=== PATIENT | female | born 1995 ===

== ENCOUNTER 2025-03-13 10:30 | Outpatient (RCR) | payer OTHER, SELFPAY ==
--- NOTE | 2025-02-28 12:28 | PC.NURSE ---
Edd is a 29 year old female who was encouraged to reach out to PHP by her therapist. Per the referral it was noted that she needs to complete PHP prior to continuing with her. Edd prefers to go by Jose and it will be documented throughout the integrative assessment as Jose. Jose disclosed that she had only seen her once and that she is unaware of any situations of why she would be told that. Jose disclosed that she spoke to the therapist because she was feeling terrible and she informed her of some suicidal ideations that was occurring for her after she experiencing a rupture in a relationship with an individual she was going on dates together who she thought was going to turn into something more but was informed by that individual that it doesn?t feel right and this individual discontinued speaking with them. Jose stated that there was no closure. Jose voiced that she was fine but after a month it had come into reality what had occurred. Jose mentioned that is when she sought out this therapist. Jose disclosed that the suicidal thoughts were around that she didn?t want to live anymore, in which she talked about hanging herself. Jose stated that she said she wasn?t going to hang herself now but disclosed that she can?t guarantee that she will never do it in her life. Jose disclosed that she has noticed improvement in her overall mood, in which she stated things began to get better after she met Court (early February of 2025) up until current time. Jose feels as though what helped with her overall mood was giving up and trying to be more spiritual.
--- NOTE | 2025-02-28 12:39 | PC.NURSE ---
pt denies home medications
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
--- NOTE | 2025-03-03 06:44 | HO.PHP ---
PHP staff member faxed over a referral for OP therapy and Med Management for [facility] to [facility].
--- NOTE | 2025-03-10 15:40 | HO.PHP ---
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 Original Note: Edd disclosed that she is feeling uncomfortable and triggered within the group setting due to the size of the groups today. [facility] staff member encouraged her to implement her coping skills and that she is here to work on improving those triggers. Edd did not want to return to the group to try. [facility] staff member assessed for safety and suggested that she can go home and return Thursday. Edd was in agreement. There was no SI, plan or intent reported.
--- NOTE | 2025-03-13 23:31 | P.PNPSP_ITS ---
Subjective Subjective Date of Service: 03/13/25 Reason For Visit: depression,anxiety,SI,BPD Interim History: Patient seen for follow-up, anticipating discharge at the end of program today.? Thank goodness...Doing better Reports mood is feeling pretty level . Denies any SI or SIB thoughts. Reports no acute issues or concerns. Medication compliant, medications well- tolerated. Denies any adverse effects.? Mood is stable.? Denies any hopelessness or SI. Denies thoughts of harming self or others at this time. Denies any aggressive ideation or HI. Denies any paranoia or AH or VH. Sleep, appetite, energy stable. Medication Compliance: Yes Side effects from medications: No Attending Groups: Yes Review of Systems Acute medical concerns: No Mental Status Exam Mental Status Exam Narrative: Alert, oriented, in no acute distress. Calm, cooperative, engaged. No psyc homotor agitation or neurovegetative retardation. Eye contact maintained. Mood pretty good anxious, affect variable, mood congruent. Speech normal. Thought process linear, coherent. Thought content related to stressors, denies any hopelessness or SI. Denies any aggressive ideation or HI. No paranoia or delusional content elicited. No evidence of psychosis. Insight and judgment - fair but adequate. Assessment & Plan Assessment & Plan (1) Mood disorder: Status: Acute Code(s): F39 - Unspecified mood [affective] disorder (2) Cognitive attention deficit: Status: Acute Code(s): R41.840 - Attention and concentration deficit (3) Complex posttraumatic stress disorder: Status: Acute Code(s): F43.10 - Post-traumatic stress disorder, unspecified (4) Anxiety disorder: Status: Acute Code(s): F41.9 - Anxiety disorder, unspecified (5) ADD (attention deficit disorder): Status: Acute Code(s): F98.8 - Other specified behavioral and emotional disorders with onset usually occurring in childhood and adolescence Plan Discharge from [facility] Continue regular medications? Refills sent to pharmacy Will defer further medication management to outpatient provider *Safety plan reviewed *Discharge diagnoses, treatment course, discharge plan have been reviewed with patient (including medication regime, medication management, potential side effects) as well as treatment rationale were also revisited *Discharge paperwork signed and given to patient, copy sent for scanning to rossy clifton Patient educated on: diagnosis and medication risk/benefits Informed Consent: understands Reason for contiued partial hosp. stay Substantial Risk for: stable for discharge Certification I certify that partial hospital treatment is medically necessary due to the symptoms and problems resulting from the patient's mental illness and the failure to treat the patient at the partial hospital level of care would likely result in the patient requiring inpatient psychiatric care which could not be prevented at a less intensive level of care. Total time managing care of this patient today _30___ minutes. Discharge Plan Discharge Attending provider: Maci Mitchell Patient Education: PTSD (Post Traumatic Stress Disorder) (ED), PTSD (Post Traumatic Stress Disorder) (DC), Anxiety (ED), Anxiety (GEN) Print Language: Setswana
== END 2025-03-13 23:59 | disposition home or self-care (01) ==
LOC: HO.PHPA 10:30
PROVIDERS: Visit Provider Psychiatry & Neurology Psychiatry
DX: F43.10 Post-traumatic stress disorder, unspecified (principal); F41.9 Anxiety disorder, unspecified; F39 Unspecified mood [affective] disorder; R41.840 Attention and concentration deficit; F98.8 Other specified behavioral and emotional disorders with onset usually occurring in childhood and adolescence
CPT/HCPCS: 90791; 90853

== ENCOUNTER → 2025-03-13 10:30 | Outpatient (BNV) | payer OTHER, SELFPAY | PROVIDERS: Visit Provider Psychiatry & Neurology Psychiatry | DX: F39 Unspecified mood [affective] disorder (principal); R41.840 Attention and concentration deficit; F43.11 Post-traumatic stress disorder, acute; F41.9 Anxiety disorder, unspecified; F98.8 Other specified behavioral and emotional disorders with onset usually occurring in childhood and adolescence | CPT/HCPCS: 99499 ==